=== PATIENT | female | born 1950 | race Caucasian/White ===

== ENCOUNTER 2019-04-13 08:40 | Day surgery (SDC) | payer OTHER ==
[2019-04-11 14:02] VITALS: BMI 20.3
--- NOTE | 2019-04-11 14:54 | HP ---
Admitting History and Physical - Primary Care Physician PCP: Giles Monroe - Admission Chief Complaint: Right breast cancer History of Present Illness: 68 year old postmenapausal female with strong family H/O breast cancer with bilateral mammogram and US 04/2019 showing increasing calcifications right breast upper outer quadrant with suspicious mass in this region on US. 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 Breast MRI showed localized right breast cancer at 11:00 4 cm FN 2.1x1.8x2.6cm 1 cm from lateral skin margin. History Source: Patient Limitations to Obtaining History: No Limitations - Past Medical History Cardiovascular: Yes: HTN - Past Surgical History Additional Past Surgical History: mutiple breast biopsies benign 2004 left wrist ORIF 2007 right knee arthroscopy - Smoking History Smoking history: Never smoked Have you smoked in the past 12 months: No - Alcohol/Substance Use Hx Alcohol Use: Yes (SOCIAL) Home Medications - Allergies Allergies/Adverse Reactions: Allergies Allergy/AdvReac Type Severity Reaction Status Date / Time No Known Allergies Allergy Verified 04/11/19 13:55 - Home Medications Home Medications: Ambulatory Orders Atenolol [Tenormin -] 50 mg PO DAILY 04/11/19 Multivit-Min/Iron/Folic/Lutein [Centrum Silver Women Tablet] 1 tab PO DAILY Family Medical History Family Hx Cancer: Grandfather (paternal) ([id number]), Mother (breast and uterine 50/ 70), Father (thyroid ca 47), Sister (bilateral breast ca 33/38//bilateral breast ca 42/49) Other Family History: pat and maternal aunt breast ca 48 /58 respectively Physical Examination Constitutional: Yes: No Distress Breast(s): Yes: Other (B cup breasts palpable mass right upper outer aspect breast, left negative ,no adenopathy bilaterally) Problem List - Problems (1) Breast cancer, right breast Code(s): C50.911 - MALIGNANT NEOPLASM OF UNSP SITE OF RIGHT FEMALE BREAST Qualifiers: Breast location: upper outer quadrant of breast Estrogen receptor status: positive Patient sex: female Qualified Code(s): C50.411 - Malignant neoplasm of upper-outer quadrant of right female breast; Z17.0 - Estrogen receptor positive status [ER+] Assessment/Plan Right breast wide excision, mammogram needle localization sentenel node biopsy, lymphoscintogram,possible xillary node dissection
[2019-04-13] MEDS ORDERED: LIDOCAINE HCL 1%, 10 MG/ML (20ML VIAL) ONE (13:03)
[2019-04-13] MEDS ORDERED: SUCCINYLCHOLINE CHLORIDE 200 MG/10 ML SYRINGE ONE (13:36)
[2019-04-13] MEDS ORDERED: PROPOFOL 20 ML ONE (13:36)
[2019-04-13] MEDS ORDERED: MIDAZOLAM HCL 2 MG/2 ML SINGLE DOSE VIAL ONE (13:37)
[2019-04-13] MEDS ORDERED: LIDOCAINE HCL/PF 2% SDV 5ML VIAL ONE (13:39)
[2019-04-13] MEDS ORDERED: ceFAZolin SODIUM 1 GM VIAL ONE (14:05)
[2019-04-13] MEDS ORDERED: ISOSULFAN BLUE 10 MG/ML VIAL SQ ONE (14:06)
[2019-04-13] MEDS ORDERED: EPHEDRINE SULFATE/0.9% NACL/PF 50 MG/10 ML SYRINGE NR ONE (14:10)
[2019-04-13] MEDS ORDERED: KETOROLAC TROMETHAMINE 30 MG/1 ML VIAL ONE (15:56)
[2019-04-13] MEDS ORDERED: KETOROLAC TROMETHAMINE 30 MG/1 ML VIAL IVPUSH PRN (16:03)
[2019-04-13] MEDS ORDERED: ONDANSETRON 4 MG/2 ML VIAL IVPUSH PRN (16:03)
[2019-04-13] MEDS ORDERED: ONDANSETRON 4 MG/2 ML VIAL ONE (16:09)
[2019-04-13 16:13] VITALS: TEMP 97.5
[2019-04-13] MEDS ORDERED: DEXTROSE 5%-0.45% SALINE 1,000 ML IV SCH (16:15)
--- NOTE | 2019-04-13 16:56 | OP ---
DATE OF OPERATION: 04/13/2019 PREOPERATIVE DIAGNOSIS: Right breast cancer, upper outer quadrant. POSTOPERATIVE DIAGNOSIS: Right breast cancer, upper outer quadrant. PROCEDURE PERFORMED: Right breast partial mastectomy with mammographic needle localization and right axillary sentinel lymph node biopsy, with 5 x 4-cm tissue transfer closure. ANESTHESIA: General laryngeal mask airway anesthesia. PRIMARY SURGEON: Artemio Monroe MD CIVIL ENGINEERING DESIGN DRAFTSPERSON: MARTHA Fatima COMPLICATIONS: There were no complications. INDICATIONS: Briefly, the patient is a 68-year-old postmenopausal white female with a strong family history, with her mother with breast cancer at age 50 and 2 sisters had breast cancer at ages 33 and 38. She has a maternal aunt who had breast cancer at age 58 and paternal aunt had breast cancer at age 48. Her paternal grandfather had colon cancer. The patient underwent [employer] genetic panel testing in January 2018, which was negative. She has been undergoing routine screening and was found to have an increase in calcifications and a mass towards the upper outer aspect of the right breast on mammography and ultrasound in March 2019, with a 2.6 x 1.5 x 2.3-cm density seen on ultrasound. Ultrasound core biopsy showed a microinvasive ductal cancer which was ER/KS positive and HER-II could not be run due to the small amount of invasive care. MRI showed it to be localized, measuring about 2.1 x 1.8 x 2.6 cm. She was advised on undergoing a right breast partial mastectomy and sentinel lymph node biopsy. DESCRIPTION OF PROCEDURE: The patient was brought in through Ambulatory Surgery on April 13, 2019, underwent needle localization and lymphoscintigraphy at [facility], and then was brought to the [facility] area. In the holding area, site verification was made and informed consent was obtained. She was brought into the operating room and laid on the OR table in the supine position. Venodynes were placed on the lower extremities prior to induction. She received 2 g of Ancef prior to incision. She underwent general laryngeal mask airway anesthesia. Lymphazurin Blue 3 mL was injected intradermally and peritumorly around the needle localization site in the upper outer aspect of the right breast. Massage was instituted. A time-out was performed after she was sterilely prepped and draped in the usual fashion. The right axillary sentinel lymph node biopsy was first performed. An incision was made just below the hair-bearing area of the right axilla and dissection was undertaken, and blue lymphatics were easily seen, coursing to a blue hot lymph node which had a 10-second gamma count of 2981. A 2nd blue node was removed, which did not have any significant gamma count. A 3rd hot slightly blue node was then found in the level 2 region of the right axilla, with a 10-second gamma count of 833. All 3 nodes were sent to Pathology in formalin for permanent section. Hemostasis was achieved and the axillary wound was closed using 2-0 plain sutures and interrupted 3-0 deep dermal Vicryl and a running 4-0 subcuticular Biosyn suture. At this point a wide excision was undertaken around the needle localization site in the upper outer aspect of the right breast. A curvilinear incision was made directly over the needle localization site and dissection was undertaken around the known cancer. The breast tissue was completely removed from around the wire all the way down to the pectoralis major muscle. The specimen was oriented with a long lateral and short superior suture. Specimen radiograph showed the calcifications and clip in question. The specimen was placed in formalin and sent to Pathology as specimen. At this point separate margins were then taken on the superior, inferior, medial, lateral, deep and anterior margins, with suture marking the biopsy cavity side of each specimen, and they were all sent separately to Pathology in formalin. Again, hemostasis was achieved. The wound was copiously irrigated, and the breast tissue was undermined to allow for a 5 x 4-cm tissue transfer closure. The breast tissue was reapproximated using 2-0 plain suture. The skin was closed using interrupted 3-0 deep dermal Vicryl suture and a running 4-0 subcuticular Biosyn suture. Mastisol and Steri-Strips were applied over the wound and a compressive dressing placed over this this. She was placed in a surgical bra postoperatively. All sponge and needle counts were correct at the end of the case. Estimated blood loss was about 20 mL. The patient had the laryngeal mask airway tube removed and will be recovered in the postanesthesia care unit and discharged home the same day once discharge criteria are met. She is to follow up in the office in 1 week for a formal wound and pathology check. ARTEMIO MONROE M.D. [id number]
[2019-04-13 18:03] VITALS: BP 155/84; PULSE 58
--- NOTE | 2019-04-20 11:28 | PATH ---
Surgical Pathology Report Patient Name: [facility] DAY [facility]. Rec. #: [id number] /Age/Gender: 1950 (Age: 68) / F Account: [id number] Location: [facility] AM[facility] Taken: 04/13/2019 Received: 04/13/2019 Reported: 04/20/2019 Physicians: Giles Monroe M.D. Specimen(s) Received A: RIGHT SENTINEL LYMPH NODE # 1 B: RIGHT SENTINEL LYMPH NODE # 2 C: RIGHT SENTINEL LYMPH NODE # 3 D: RIGHT BREAST MASS E: SUPERIOR MARGIN RIGHT BREAST F: INFERIOR MARGIN RIGHT BREAST G: MEDIAL MARGIN RIGHT BREAST H: ANTERIOR MARGIN RIGHT BREAST I: LATERAL MARGIN RIGHT BREAST J: POSTERIOR MARGIN RIGHT BREAST Clinical History Right upper outer quadrant microinvasive cancer Final Diagnosis A. lymph node, right sentinel #1, excision: One lymph node, negative for metastatic carcinoma (0/1). B. lymph node, right sentinel #2, excision: One lymph node, negative for metastatic carcinoma (0/1). C. lymph node, right sentinel #3, excision: Two lymph nodes, negative for metastatic carcinoma (0/2). D. breast, right, mass, wide excision: Multiple foci (~7) of microinvasive carcinoma (</= 1 mm) arising in a background of extensive ductal carcinoma in situ (DCIS), Solid type, high nuclear grade with EXTENSIVE ("COMEDO-TYPE") necrosis AND ASSOCIATED CALCIFICATIONS. (SEE NOTE) DCIS forms a mass spanning approximately 2.0 cm in greatest dimension Microscopically, and is present in seven of eight slides (7/8). Surgical margins are uninvolved by microinvasive carcinoma; a focus of microinvasive carcinoma is at 2 mm from the closest (anterior) margin. DCIS is close to (< 1 mm) the anterior margin and at 1 mm from the CLOSEST inferior margin. see specimens E-j fOR final margins. No lymphovascular invasion is identified. Prior biopsy changes are present. Remaining breast tissue shows RADIAL SCAR (PARTIALly INVOLVED BY DCIS) AND proliferative fibrocystic changes. Pathologic stage (pTNM): pT1(mi) pN0. see also invasive carcinoma case Summary below. Note: Myoepithelial immunohistochemical markers (SMM-HC and p63, performed on blocks D3, D4 & D5 at [facility]) demonstrate the absence of myoepithelial cells in the foci of microinvasive carcinoma. These findings support the diagnosis. E. breast, right, superior margin, excision: Benign breast tissue showing proliferative fibrocystic changes. F. breast, right, inferior margin, excision: Focal atypical ductal hyperplasia (adH), proliferative fibrocystic changes and sclerosing adenosis. (See note). Note: Myoepithelial immunohistochemical markers (p63 & SMM-HC, performed at [facility]) demonstrate the presence of myoepithelial cells in the foci of sclerosing adenosis. G. breast, right, medial margin, excision: Benign breast tissue showing proliferative fibrocystic changes. H. breast, right, anterior margin, excision: Benign breast tissue showing proliferative fibrocystic changes. I. breast, right, lateral margin, excision: DCIS, high nuclear grade, involving radial scar. DCIS is present in one of thREe slides (1/3). The new Margin is uninvolved by DCIS; DCIS is focally at 1 mm From the CLOSEST new margin. J. breast, right, posterior margin, excision: Benign fibroadipose tissue. Comments Breast Invasive Carcinoma: Surgical Pathology Case Summary (Based on AJCC TNM 8 th edition) Procedure _X_ Excision (less than total mastectomy) Specimen Laterality _X_ Right Tumor Size _X_ Microinvasion only (=1 mm) Histologic Type _X_ Microinvasive carcinoma Histologic Grade (Parrish Histologic Score) Glandular (Acinar)/Tubular Differentiation _X_ Only microinvasion present (not graded) Nuclear Pleomorphism _X_ Only microinvasion present (not graded) Mitotic Rate _X_ Only microinvasion present (not graded) Overall Grade _X_ Only microinvasion present (not graded) Tumor Focality _X_ Multiple foci of microinvasive carcinoma Number of foci: 7 Sizes of individual foci: </= 1 mm Ductal Carcinoma In Situ (DCIS) _X_ DCIS is present in specimen _X_ Positive for extensive intraductal component (EIC) Size (extent) of DCIS: Estimated size (extent) of DCIS is at least (millimeters): 20 mm Number of blocks with DCIS: 8 Number of blocks examined: 22 (number of blocks is based on specimens D-J) Margins Invasive Carcinoma Margins _X_ Uninvolved by microinvasive carcinoma Distance from closest margin (millimeters): 2 mm from anterior margin in wide excision D. Final anterior margin H is negative for carcinoma. DCIS Margins _X_ Uninvolved by DCIS Distance from closest margin (millimeters): focally at1 mm from final lateral margin I. Regional Lymph Nodes _X_ Uninvolved by tumor cells Number of Lymph Nodes Examined: 4 Number of [place] Nodes Examined: 4 Treatment Effect _X_ No known presurgical therapy Lymphovascular Invasion _X_ Not identified Pathologic Stage Classification (pTNM, AJCC 8th Edition) Primary Tumor (Invasive Carcinoma) (pT) _X_ pT1mi (m): Tumor =1 mm in greatest dimension Regional Lymph Nodes (pN) Category (pN) _X_ pN0 (sn): No regional lymph node metastasis identified or ITCs only Biomarker Studies Results of ER, RI, Her2 (IHC) & Ki-67 studies performed on this specimen (block D3, microinvasive carcinoma) at [place], [place] ([id number]) are as follows: ER (clone [id number] mouse monoclonal antibody by [employer]): 0 % nuclear staining (negative). RI (clone16 mouse monoclonal antibody by [employer]): 0 % nuclear staining (negative). Her2 IHC (using [employer] Polymer Refine detection kit): 0 (negative). Ki67: ~20% (intermediate proliferative index). Note: DCIS is also negative for ER & RI (0%). Positive and negative controls (internal if applicable) show appropriate results. Formalin fixation and cold ischemic times are within current ASCO/CAP recommendations for ER, RI and Her2 testing. Electronically Signed Naheed Maldonado M.D. Gross Description A. Received in formalin labeled "right breast sentinel lymph node #1," is a 1.5 x 0.9 x 0.6 cm lymph node with attached fat. The specimen is bisected and entirely submitted in one cassette. B. Received in formalin labeled "sentinel lymph node #2 right breast," is a 0.9 x 0.7 x 0.3 cm rodriguez lymph node with attached fat. The specimen is submitted in toto in one cassette. C. Received in formalin labeled "sentinel lymph node #3 right breast," are 2 rodriguez possible lymph nodes with attached fat measuring 0.7 and 0.8 cm in greatest dimension. The specimens are submitted in toto in one cassette. D. Received in formalin, labeled "right breast needle localization breast mass wide excision," is a 5.4 x 4.0 x 2.8 cm. rodriguez-yellow, irregular, portion of fibroadipose tissue with a needle localization wire present. There is a short suture marking the superior aspect and a long suture marking the lateral aspect, per the surgeon. There is no skin present. The specimen is inked as follows: superior and lateral blue; inferior green; medial yellow; anterior red; deep black. The specimen is serially sectioned from superior to inferior. Sectioning reveals a 1.8 x 1.8 x 1.5 cm rodriguez, indurated, ill-defined mass. The mass is focally at 0.2 cm from the anterior margin, 0.6 cm from the medial margin, 0.8 cm from the deep margin and 0.9 cm from the lateral margin. The remaining breast parenchyma displays diffuse dense white fibrous tissue. Needle Maker sections are submitted in 8 cassettes as follows: 1-superior margin; 2-4-one full-face section of mass each (each with anterior and medial margins); 5-mass with the anterior, medial and deep margins; 6-lateral margin; 7-additional deep margin; 8-inferior margin. Time to formalin fixation: 1 minute Total formalin fixation time: Approximately 28 hours. E. Received in formalin labeled "superior margin right breast," is a 2.3 x 1.6 x 0.6 cm portion of fibroadipose tissue with a suture marking the biopsy cavity side, per the surgeon. The new margin is inked blue and the specimen is serially sectioned. The specimen is entirely submitted in 2 cassettes. F. Received in formalin labeled "inferior margin right breast," the 2.9 x 1.9 x 0.7 cm portion of fibroadipose tissue with a suture marking the biopsy cavity side, per the surgeon. The new margin is inked blue and the specimen is serially sectioned. The specimen is entirely submitted in 3 cassettes. G. Received in formalin labeled "medial margin right breast," is a 2.0 x 1.9 x 0.4 cm portion of fibroadipose tissue with a suture marking the biopsy cavity side, per the surgeon. The new margin is inked blue and the specimen is serially sectioned. The specimen is entirely submitted in 2 cassettes. H. Received in formalin labeled "anterior margin right breast," is a 2.3 x 1.8 x 0.6 cm portion of fibroadipose tissue with a suture marking the biopsy cavity side, per the surgeon. The new margin is inked blue and the specimen is serially sectioned. The specimen is entirely submitted in 2 cassettes. I. Received in formalin labeled "lateral margin right breast," is a 2.7 x 2.7 x 0.8 cm portion of fibroadipose tissue with a suture marking the biopsy cavity side, per the surgeon. The new margin is inked blue and the specimen is serially sectioned. The specimen is entirely submitted in 3 cassettes. J. Received in formalin labeled "posterior margin right breast," is a 2.4 x 1.8 x 0.6 cm portion of fibroadipose tissue with a suture marking the biopsy cavity side, per the surgeon. The new margin is inked blue and the specimen is serially sectioned. The specimen is entirely submitted in 2 cassettes. 04/14/2019 [facility]04/14/2019
== END 2019-04-13 15:25 | disposition home or self-care (01) ==
LOC: FASU 08:40
PROVIDERS: ATTEND Surgery Surgical Oncology
PROC: 0HBU0ZZ Excision of Left Breast, Open Approach (ICD-10-PCS; principal; 2019-04-13 13:00)
DX: C50.411 Malignant neoplasm of upper-outer quadrant of right female breast (principal); Z17.0 Estrogen receptor positive status [ER+]; I10 Essential (primary) hypertension
CPT/HCPCS: 19281; 76098-TC-FY; 78195-TC; 94760; A9541